=== PATIENT | male | born 1960 | race Caucasian/White ===

== ENCOUNTER 2016-10-07 17:28 | Observation (INO) ==
--- NOTE | 2016-10-07 17:44 | Emergency Department Note ---
Disposition Clinical Impression: Shortness of breath Disposition: Admitted As Inpatient Condition: Good General Adult HPI - General Chief complaint: ED Shortness of Breath/Dyspnea Stated complaint: Sent by Dr. Fountain for admission, MARY Time Seen by Provider: 10/07/16 17:38 Source: patient Limitations: no limitations - History of Present Illness Pain Scale: 0 - Related Data Home Medications Medication Instructions Recorded Confirmed Albuterol Sulfate [Ventolin Hfa] 2 puff IH Q6H PRN 10/07/16 10/07/16 Amlodipine [Norvasc] 5 mg PO DAILY 10/07/16 10/07/16 Budesonide/Formoterol 160/4.5 2 puff IH BIDR 10/07/16 10/07/16 [Symbicort 160/4.5] Esomeprazole Magnesium [Nexium] 40 mg PO DAILY 10/07/16 10/07/16 Lisinopril [Zestril] 5 mg PO DAILY 10/07/16 10/07/16 PredniSONE [Deltasone] See Taper PO TAPER 10/07/16 10/07/16 Ranitidine HCl [Zantac] 300 mg PO HS 10/07/16 10/07/16 Tiotropium [Spiriva] 18 mcg IH 0700 10/07/16 10/07/16 Previous Rx's Medication Instructions Recorded Azithromycin [Azithromycin 6-Tab 250 mg PO PER PKG DI #6 tab 08/26/15 Pack] GuaiFENesin/Codeine [ROBITUSSIN 5 ml PO Q6HR PRN #150 ml 10/09/16 w/CODEINE] Allergies Allergy/AdvReac Type Severity Reaction Status Date / Time No Known Allergies Allergy Verified 10/07/16 20:37 Past Medical History - Past Medical History Medical history: Reports: non-contributory Psychiatric history: Reports: no psych history - Social History Smoking Status: Never smoker Smokeless Tobacco Status: No Alcohol use: Reports: none Drug use: Reports: none Physical Exam - General Limitations: no limitations General appearance: alert, in no apparent distress Course Vital Signs Temperature 95.5 F L 10/07/16 17:34 Pulse Rate 84 10/07/16 17:34 Respiratory Rate 18 10/07/16 17:34 Blood Pressure 150/92 10/07/16 17:34 O2 Sat by Pulse Oximetry 97 10/07/16 17:34 Temperature 97.8 F 10/09/16 14:30 Pulse Rate 83 10/09/16 17:14 Respiratory Rate 12 10/09/16 17:14 Blood Pressure 147/84 10/09/16 17:14 O2 Sat by Pulse Oximetry 94 10/09/16 14:30 Oxygen Delivery Oxygen Delivery Room Air Medical Decision Making - Lab Data Result diagrams: 10/08/16 01:00 10/08/16 01:00 Lab Results 10/07/16 10/07/16 10/07/16 Range/Units 19:06 19:06 19:06 WBC 11.5 H (4.3-11.1) K/mcL RBC 5.35 (4.19-5.50) M/mcL Hgb 16.4 (12.9-16.9) g/dL Hct 46.4 (37.5-50.1) % MCV 86.7 (83.0-100.0) fL MCH 30.7 (28.0-33.3) pg MCHC 35.3 (31.6-35.5) g/dL RDW 12.7 (11.5-14.5) % Plt Count 206 (140-400) K/mcL MPV 9.8 (9.4-12.4) fL Immature Gran % 1.1 (0-4) % Seg Neutrophils % 88.3 % Lymphocytes % 8.4 % Monocytes % 2.1 % Eosinophils % 0.0 % Basophils % 0.1 % Neutrophils # 10.2 H (1.6-8.9) K/mcL Lymphocytes # 1.0 (0.6-4.6) K/mcL Monocytes # 0.2 (0.0-1.3) K/mcL Eosinophils # 0.0 (0.0-0.6) K/mcL Basophils # 0.0 (0.0-0.2) K/mcL PT 11.6 (9.4-12.1) Seconds INR 1.1 APTT 24.1 L (26.0-36.0) Seconds D-Dimer 235 (0-500) ng/mLFEU Sodium 140 (136-145) mEq/L Potassium 3.8 (3.5-4.5) mEq/L Chloride 108 (98-109) mEq/L Carbon Dioxide 24 (19-29) mEq/L BUN 19 (8-26) mg/dL Creatinine 0.92 (0.72-1.25) mg/dL Est GFR ( Amer) > 60 (> 60) Est GFR (Non-Af Amer) > 60 (> 60) BUN/Creatinine Ratio 21 (6-26) Glucose 196 H (70-99) mg/dL Calculated Osmolality 298 (280-300) Calcium 8.5 L (8.6-10.8) mg/dL Troponin I (0-0.03) ng/mL B-Natriuretic Peptide (0-100) pg/mL B. pertussis DNA (Negative) 10/07/16 10/07/16 10/07/16 Range/Units 19:06 19:06 20:46 WBC (4.3-11.1) K/mcL RBC (4.19-5.50) M/mcL Hgb (12.9-16.9) g/dL Hct (37.5-50.1) % MCV (83.0-100.0) fL MCH (28.0-33.3) pg MCHC (31.6-35.5) g/dL RDW (11.5-14.5) % Plt Count (140-400) K/mcL MPV (9.4-12.4) fL Immature Gran % (0-4) % Seg Neutrophils % % Lymphocytes % % Monocytes % % Eosinophils % % Basophils % % Neutrophils # (1.6-8.9) K/mcL Lymphocytes # (0.6-4.6) K/mcL Monocytes # (0.0-1.3) K/mcL Eosinophils # (0.0-0.6) K/mcL Basophils # (0.0-0.2) K/mcL PT (9.4-12.1) Seconds INR APTT (26.0-36.0) Seconds D-Dimer (0-500) ng/mLFEU Sodium (136-145) mEq/L Potassium (3.5-4.5) mEq/L Chloride (98-109) mEq/L Carbon Dioxide (19-29) mEq/L BUN (8-26) mg/dL Creatinine (0.72-1.25) mg/dL Est GFR ( Amer) (> 60) Est GFR (Non-Af Amer) (> 60) BUN/Creatinine Ratio (6-26) Glucose (70-99) mg/dL Calculated Osmolality (280-300) Calcium (8.6-10.8) mg/dL Troponin I 0.00 (0-0.03) ng/mL B-Natriuretic Peptide 53 (0-100) pg/mL B. pertussis DNA Negative (Negative) Attestation Statement - Attestation Attestation: I examined this patient and my medical decision-making was reviewed with the ELECTROTYPER/PA/Advanced Practice Nurse/Resident Physician. I agree with the documented findings, disposition and treatment plan as described except to the extent set forth below. Face to face time provided Patient seen and evaluated in conjunction with the resident physician Dr. Staley. He complains of dyspnea and nonproductive cough. Sent to the emergency department at the recommendation of his primary care provider. Appears in no acute distress on exam. EKG reviewed by me. 18:41: Care to be endorsed to the oncoming physician Dr. Doe at 7 PM pending labs, reevaluation. They will determine the patient's final disposition
[2016-10-07] MEDS ORDERED: Ipratropium/Albuterol Neb 3 ML IH ONE (18:04)
--- NOTE | 2016-10-07 18:09 | Emergency Department Note ---
Disposition Clinical Impression: Shortness of breath Disposition: Still a Patient Referrals: Simon Fountain MD [Primary Care Provider] - Forms: ED Satisfaction Letter Time of Disposition: 19:03 SOB HPI - General Chief Complaint: ED Shortness of Breath/Dyspnea Stated Complaint: Sent by Dr. Fountain for admission, MARY Time Seen by Provider: 10/07/16 17:38 Source: patient Mode of arrival: ambulatory Limitations: no limitations Nursing Notes Reviewed: Yes Vital Signs Reviewed: Yes - History of Present Illness Patient presents to the ED with the chief complaint of shortness of breath. Patient states that he became short of breath approximately one month ago. He saw his primary care physician, Dr. Fountain, who diagnosed him with bronchitis and placed him on albuterol, steroids. Patient states he felt like he got a little better, but has since then developed worsening difficulty breathing and a nonproductive cough. He reports coughing so violently that he has developed sternal chest tenderness. Denies any chest pain but states that his sternum and ribs are very sore from coughing. He has had a few episodes of posttussive emesis. He said a few episodes where he has coughed so much he is almost "blacked out". He states that he saw Dr. Fountain again 2 days ago and performed a chest x-ray. He has a voicemail on his phone from 4:[address] Fountain instructing him to come to the emergency department for admission. We have not received any communication from his office about this and has chest x-ray performed yesterday was read as normal. Patient has no known history of CHF, COPD or asthma. No history of coronary artery disease. Does have a history of hypertension. No pain or swelling in his legs. Has been having headaches from coughing so much, but no change from baseline. No changes in vision. No abdominal pain, nausea, or diarrhea. No rashes. No history of DVT or PE. No h /o malignancy - Related Data Previous Rx's Medication Instructions Recorded Azithromycin [Azithromycin 6-Tab 250 mg PO PER PKG DI #6 tab 08/26/15 Pack] Ondansetron ODT [Zofran ODT] 4 mg SL Q6HR PRN #30 tab.rapdis 09/01/15 Allergies Allergy/AdvReac Type Severity Reaction Status Date / Time No Known Allergies Allergy Verified 10/07/16 17:34 All systems ED: reviewed and negative except as stated. Constitutional: Denies: fever Cardiovascular: Reports: chest pain (sternal, tender), dyspnea on exertion. Denies: palpitations, orthopnea, edema, syncope Respiratory: Reports: cough, dyspnea, wheezes. Denies: hemoptysis, stridor, sputum production Gastrointestinal: Denies: abdominal pain, nausea, vomiting Genitourinary: Denies: dysuria Musculoskeletal: Denies: back pain, neck pain Integumentary: Denies: rash Neurological: Reports: headache Endocrine: Reports: fatigue (low testosterone) Past Medical History - Past Medical History Attestation: Yes The following information was validated with the patient. Source: patient Medical history: Reports: non-contributory Psychiatric history: Reports: no psych history - Social History Smoking Status: Never smoker Smokeless Tobacco Status: No Alcohol use: Reports: none Drug use: Reports: none Physical Exam - General Limitations: no limitations General appearance: alert, in no apparent distress - Head Head exam: atraumatic, normocephalic, normal inspection - Eye Eye exam: Present: normal appearance, PERRL, EOMI - ENT ENT exam: normal exam, normal oropharynx, mucous membranes moist - Neck Neck exam: Present: normal inspection, full ROM, trachea midline - Chest Chest inspection: Present: normal inspection, symmetric chest wall rise - Respiratory Respiratory exam: Present: wheezes (Scattered wheezing, left greater than right , no respiratory distress but is slightly dyspneic). Absent: normal lung sounds bilaterally, respiratory distress - Cardiovascular Cardiovascular exam: Present: regular rate, normal rhythm, normal heart sounds - Abdominal Exam Abdominal exam: Present: soft, Non-Tender. Absent: tenderness, distention, guarding, rebound, rigidity - Extremities Exam Extremities exam: Present: normal inspection, full ROM. Absent: tenderness, pedal edema - Expanded Lower Extremity Exam Hip/Pelvis exam: Present: normal inspection, full ROM Upper leg exam: Present: normal inspection, full ROM Knee exam: Present: normal inspection, full ROM Lower leg exam: Present: normal inspection, full ROM Ankle exam: Present: normal inspection, full ROM Foot/toe exam: Present: normal inspection, full ROM Neurovascular/Tendon exam: Absent: motor deficit, sensory deficit, tendon deficit - Neurological Exam Neurological exam: Present: alert, oriented X3 - Psychiatric Psychiatric exam: Present: normal affect, normal mood - Skin Skin exam: Present: warm, dry, intact, normal color Course Course Narrative: 56 y/o M presenting with a month of difficulty breathing. Has been treated for bronchitis and is not getting better. He is wheezing. We will check labs, give him a breathing treatment and will admit per his primary care physician's request, although we have not been contacted about this patient or notified in any way that he was being sent over for admission. Vital Signs Temperature 95.5 F L 10/07/16 17:34 Pulse Rate 84 10/07/16 17:34 Respiratory Rate 18 10/07/16 17:34 Blood Pressure 150/92 10/07/16 17:34 O2 Sat by Pulse Oximetry 97 10/07/16 17:34 Temperature 95.5 F L 10/07/16 17:34 Pulse Rate 84 10/07/16 17:34 Respiratory Rate 18 10/07/16 17:34 Blood Pressure 150/92 10/07/16 17:34 O2 Sat by Pulse Oximetry 97 10/07/16 17:34 Oxygen Delivery Oxygen Delivery Room Air S.Zaria - Julieta Situation: Demographics, MOA Background: Presenting Complaint, Relevant PMH, Meds, & Allergies Assessment: Vital Signs, Course and respsone to treatment, Exam Concerns, Patient/Family Expectation, Pertinant Lab Results, Outstanding Labs Recommendation: Barrier(s) to disposition, Recommendation based on pending studies, treatments, or consults SDelicia Report Given to: Dr. Mike Rendon Repor Time: 19:03
[2016-10-07 19:13] LABS: Basophils % 0.1 %; Hematocrit 46.4 % (37.5-50.1); Hemoglobin 16.4 g/dL (12.9-16.9); Immature Granulocytes % 1.1 % (0-4); Lymphocytes % 8.4 %; Mean Corpuscular HGB Conc 35.3 g/dL (31.6-35.5); Mean Corpuscular Hemoglobin 30.7 pg (28.0-33.3); Mean Corpuscular Volume 86.7 fL (83.0-100.0); Mean Platelet Volume 9.8 fL (9.4-12.4); Monocytes # 0.2 K/mcL (0.0-1.3); Monocytes % 2.1 %; Neutrophils # 10.2 K/mcL (1.6-8.9); Platelet Count 206 K/mcL (140-400); Red Blood Count 5.35 M/mcL (4.19-5.50); Red Cell Distribution Width 12.7 % (11.5-14.5); Segmented Neutrophils % 88.3 %
[2016-10-07 19:18] LABS: INR 1.1; Prothrombin Time 11.6 Seconds (9.4-12.1)
[2016-10-07 19:20] LABS: Activated Partial Thrombo Time 24.1 Seconds (26.0-36.0)
[2016-10-07 19:26] LABS: BUN/Creatinine Ratio 21 (6-26); Blood Urea Nitrogen 19 mg/dL (8-26); Calcium 8.5 mg/dL (8.6-10.8); Carbon Dioxide 24 mEq/L (19-29); Chloride 108 mEq/L (98-109); Glucose 196 mg/dL (70-99); Osmolality,Calculated 298 (280-300); Potassium 3.8 mEq/L (3.5-4.5); Sodium 140 mEq/L (136-145); eGFR For African Americans > 60 (> 60); eGFR For Non-African Americans > 60 (> 60)
--- NOTE | 2016-10-07 19:30 | Emergency Department Note ---
Disposition Clinical Impression: Shortness of breath Disposition: Admitted As Inpatient Condition: Good General Adult HPI - General Chief complaint: ED Shortness of Breath/Dyspnea Stated complaint: Sent by Dr. Fountain for admission, MARY Time Seen by Provider: 10/07/16 17:38 Source: patient Mode of arrival: ambulatory Limitations: no limitations Nursing Notes Reviewed: Yes Vital Signs Reviewed: Yes - History of Present Illness HPI Narrative: Male patient being seen by Dr. Crystal and Dr. Staley and being signed out us. Please see Dr. Staley documentation. Pain Scale: 0 - Related Data Home Medications Medication Instructions Recorded Confirmed Albuterol Sulfate [Ventolin Hfa] 2 puff IH Q6H PRN 10/07/16 10/07/16 Amlodipine [Norvasc] 5 mg PO DAILY 10/07/16 10/07/16 Budesonide/Formoterol 160/4.5 2 puff IH BIDR 10/07/16 10/07/16 [Symbicort 160/4.5] Esomeprazole Magnesium [Nexium] 40 mg PO DAILY 10/07/16 10/07/16 Lisinopril [Zestril] 5 mg PO DAILY 10/07/16 10/07/16 PredniSONE [Deltasone] See Taper PO TAPER 10/07/16 10/07/16 Ranitidine HCl [Zantac] 300 mg PO HS 10/07/16 10/07/16 Tiotropium [Spiriva] 18 mcg IH 0700 10/07/16 10/07/16 Previous Rx's Medication Instructions Recorded Azithromycin [Azithromycin 6-Tab 250 mg PO PER PKG DI #6 tab 08/26/15 Pack] GuaiFENesin/Codeine [ROBITUSSIN 5 ml PO Q6HR PRN #150 ml 10/09/16 w/CODEINE] Allergies Allergy/AdvReac Type Severity Reaction Status Date / Time No Known Allergies Allergy Verified 10/07/16 20:37 Constitutional: Denies: fever Cardiovascular: Reports: chest pain (sternal, tender), dyspnea on exertion. Denies: palpitations, orthopnea, edema, syncope Respiratory: Reports: cough, dyspnea, wheezes. Denies: hemoptysis, stridor, sputum production Gastrointestinal: Denies: abdominal pain, nausea, vomiting Genitourinary: Denies: dysuria Musculoskeletal: Denies: back pain, neck pain Integumentary: Denies: rash Neurological: Reports: headache Endocrine: Reports: fatigue (low testosterone) Past Medical History - Past Medical History Medical history: Reports: non-contributory Psychiatric history: Reports: no psych history - Social History Smoking Status: Never smoker Smokeless Tobacco Status: No Alcohol use: Reports: none Drug use: Reports: none Physical Exam - General Limitations: no limitations General appearance: alert, in no apparent distress Course Course Narrative: Male patient resting comfortably in bed. He states that he has had a several week history of cough with posttussive emesis and he states that he has been coughing so hard that he feels like he gets dizzy. He states that he is also having a pain in the center of his chest when he coughs. He states it feels like he pulled a muscle. He does not appear in distress on my exam however does begin to cough. It appears that he cannot catch his breath while he is coughing. He states that when he is up walking around he has no trouble breathing however whenever he sits down after ambulating for a while he begins to cough and gets very short of breath. He states he then breaks out into a cold sweat. Patient states that he has tried several things including inhalers antibiotics and steroids with no relief. Patient's chest x-ray is normal. His labs are grossly normal as well. He does have some coughing fits all he is here but his oxygen saturation stays in high 90s on no supplemental oxygen. We will ambulate him throughout the department to see if his oxygen saturation drops. We will also get bilateral blood pressures due to discrepancy in the monitor. - Reevaluation(s) Reevaluation #1: Bilateral arm blood pressures are equal. Time: 19:59 - Consultations Consultation #1: Spoke with Dr Fountain. He advises that he is requesting the patient be admitted to the hospital for failure of outpatient therapy of his cough. He states he is unaware if the patient now has COPD or asthma. He states that he has tried Levaquin azithromycin Singulair Ventolin Symbicort and Spiriva as well as prednisone with no relief of this cough and patient shortness of breath. Time: 19:56 Vital Signs Temperature 95.5 F L 10/07/16 17:34 Pulse Rate 84 10/07/16 17:34 Respiratory Rate 18 10/07/16 17:34 Blood Pressure 150/92 10/07/16 17:34 O2 Sat by Pulse Oximetry 97 10/07/16 17:34 Temperature 97.8 F 10/09/16 14:30 Pulse Rate 83 10/09/16 17:14 Respiratory Rate 12 10/09/16 17:14 Blood Pressure 147/84 10/09/16 17:14 O2 Sat by Pulse Oximetry 94 10/09/16 14:30 Oxygen Delivery Oxygen Delivery Room Air Medical Decision Making - Medical Records Medical records reviewed: Yes I reviewed the patient's medical records. - Lab Data Lab results reviewed: Yes I reviewed the patient's lab results. Result diagrams: 10/08/16 01:00 10/08/16 01:00 Lab Results 10/07/16 10/07/16 10/07/16 Range/Units 19:06 19:06 19:06 WBC 11.5 H (4.3-11.1) K/mcL RBC 5.35 (4.19-5.50) M/mcL Hgb 16.4 (12.9-16.9) g/dL Hct 46.4 (37.5-50.1) % MCV 86.7 (83.0-100.0) fL MCH 30.7 (28.0-33.3) pg MCHC 35.3 (31.6-35.5) g/dL RDW 12.7 (11.5-14.5) % Plt Count 206 (140-400) K/mcL MPV 9.8 (9.4-12.4) fL Immature Gran % 1.1 (0-4) % Seg Neutrophils % 88.3 % Lymphocytes % 8.4 % Monocytes % 2.1 % Eosinophils % 0.0 % Basophils % 0.1 % Neutrophils # 10.2 H (1.6-8.9) K/mcL Lymphocytes # 1.0 (0.6-4.6) K/mcL Monocytes # 0.2 (0.0-1.3) K/mcL Eosinophils # 0.0 (0.0-0.6) K/mcL Basophils # 0.0 (0.0-0.2) K/mcL PT 11.6 (9.4-12.1) Seconds INR 1.1 APTT 24.1 L (26.0-36.0) Seconds D-Dimer 235 (0-500) ng/mLFEU Sodium 140 (136-145) mEq/L Potassium 3.8 (3.5-4.5) mEq/L Chloride 108 (98-109) mEq/L Carbon Dioxide 24 (19-29) mEq/L BUN 19 (8-26) mg/dL Creatinine 0.92 (0.72-1.25) mg/dL Est GFR ( Amer) > 60 (> 60) Est GFR (Non-Af Amer) > 60 (> 60) BUN/Creatinine Ratio 21 (6-26) Glucose 196 H (70-99) mg/dL Calculated Osmolality 298 (280-300) Calcium 8.5 L (8.6-10.8) mg/dL Troponin I (0-0.03) ng/mL B-Natriuretic Peptide (0-100) pg/mL B. pertussis DNA (Negative) 10/07/16 10/07/16 10/07/16 Range/Units 19:06 19:06 20:46 WBC (4.3-11.1) K/mcL RBC (4.19-5.50) M/mcL Hgb (12.9-16.9) g/dL Hct (37.5-50.1) % MCV (83.0-100.0) fL MCH (28.0-33.3) pg MCHC (31.6-35.5) g/dL RDW (11.5-14.5) % Plt Count (140-400) K/mcL MPV (9.4-12.4) fL Immature Gran % (0-4) % Seg Neutrophils % % Lymphocytes % % Monocytes % % Eosinophils % % Basophils % % Neutrophils # (1.6-8.9) K/mcL Lymphocytes # (0.6-4.6) K/mcL Monocytes # (0.0-1.3) K/mcL Eosinophils # (0.0-0.6) K/mcL Basophils # (0.0-0.2) K/mcL PT (9.4-12.1) Seconds INR APTT (26.0-36.0) Seconds D-Dimer (0-500) ng/mLFEU Sodium (136-145) mEq/L Potassium (3.5-4.5) mEq/L Chloride (98-109) mEq/L Carbon Dioxide (19-29) mEq/L BUN (8-26) mg/dL Creatinine (0.72-1.25) mg/dL Est GFR ( Amer) (> 60) Est GFR (Non-Af Amer) (> 60) BUN/Creatinine Ratio (6-26) Glucose (70-99) mg/dL Calculated Osmolality (280-300) Calcium (8.6-10.8) mg/dL Troponin I 0.00 (0-0.03) ng/mL B-Natriuretic Peptide 53 (0-100) pg/mL B. pertussis DNA Negative (Negative) - Radiology Data Radiology results reviewed: Yes I reviewed the patient's radiology results. Chest X-Ray 10/07/16 18:04 IMPRESSION: Stable chest since 10/06/2016. No acute cardiopulmonary findings. D/ / Marcia Soto MD / Marcia Soto MD Interpreting Provider: Marcia Soto MD
[2016-10-07] MEDS ORDERED: Benzonatate 100 MG CAPSULE PO STA (19:31)
--- NOTE | 2016-10-07 20:10 | Emergency Department Note ---
Disposition Clinical Impression: Shortness of breath Disposition: Admitted As Inpatient Condition: Good Time of Disposition: 20:13 General Adult HPI - General Chief complaint: ED Shortness of Breath/Dyspnea Stated complaint: Sent by Dr. Fountain for admission, MARY Time Seen by Provider: 10/07/16 17:38 Source: patient Mode of arrival: ambulatory Limitations: no limitations Nursing Notes Reviewed: Yes Vital Signs Reviewed: Yes - History of Present Illness Pain Scale: 0 - Related Data Home Medications Medication Instructions Recorded Confirmed Albuterol Sulfate [Ventolin Hfa] 2 puff IH Q6H PRN 10/07/16 10/07/16 Amlodipine [Norvasc] 5 mg PO DAILY 10/07/16 10/07/16 Budesonide/Formoterol 160/4.5 2 puff IH BIDR 10/07/16 10/07/16 [Symbicort 160/4.5] Esomeprazole Magnesium [Nexium] 40 mg PO DAILY 10/07/16 10/07/16 Lisinopril [Zestril] 5 mg PO DAILY 10/07/16 10/07/16 PredniSONE [Deltasone] See Taper PO TAPER 10/07/16 10/07/16 Ranitidine HCl [Zantac] 300 mg PO HS 10/07/16 10/07/16 Tiotropium [Spiriva] 18 mcg IH 0700 10/07/16 10/07/16 Previous Rx's Medication Instructions Recorded Azithromycin [Azithromycin 6-Tab 250 mg PO PER PKG DI #6 tab 08/26/15 Pack] Allergies Allergy/AdvReac Type Severity Reaction Status Date / Time No Known Allergies Allergy Verified 10/07/16 20:37 Constitutional: Denies: fever Cardiovascular: Reports: chest pain (sternal, tender), dyspnea on exertion. Denies: palpitations, orthopnea, edema, syncope Respiratory: Reports: cough, dyspnea, wheezes. Denies: hemoptysis, stridor, sputum production Gastrointestinal: Denies: abdominal pain, nausea, vomiting Genitourinary: Denies: dysuria Musculoskeletal: Denies: back pain, neck pain Integumentary: Denies: rash Neurological: Reports: headache Endocrine: Reports: fatigue (low testosterone) Past Medical History - Past Medical History Medical history: Reports: non-contributory Psychiatric history: Reports: no psych history - Social History Smoking Status: Never smoker Smokeless Tobacco Status: No Alcohol use: Reports: none Drug use: Reports: none Physical Exam - General Limitations: no limitations General appearance: alert, in no apparent distress - Head Head exam: atraumatic, normocephalic - Eye Eye exam: Present: normal appearance, PERRL, EOMI - ENT ENT exam: normal exam, normal oropharynx - Neck Neck exam: Present: normal inspection, full ROM, trachea midline - Chest Chest inspection: Present: normal inspection, symmetric chest wall rise. Absent : tenderness - Respiratory Respiratory exam: Present: wheezes (Left lung conteh. Prior to DuoNeb. Cleared after DuoNeb. Right lung sounds are clear.) - Cardiovascular Cardiovascular exam: Present: regular rate, normal rhythm, normal heart sounds - Abdominal Exam Abdominal exam: Present: soft, Non-Tender, normal bowel sounds - Extremities Exam Extremities exam: Present: normal inspection, full ROM, normal capillary refill. Absent: tenderness, pedal edema - Back Exam Back exam: Present: normal inspection, full ROM. Absent: tenderness, CVA tenderness (R), CVA tenderness (L) - Neurological Exam Neurological exam: Present: alert, oriented X3 - Psychiatric Psychiatric exam: Present: normal affect, normal mood - Skin Skin exam: Present: warm, dry, intact, normal color Course Course Narrative: Please see Dr. Staley's note for further documentation. - Reevaluation(s) Reevaluation #1: Patient ambulated throughout the emergency department. His oxygen saturation did not drop below 96% however he became very dizzy and weak. After he sat down he had a coughing episode that he could not catch his breath. We will admit The patient for his symptomatic dyspnea. He is agreeable to this. I am concerned for more of a cardiac etiology of his dyspnea as opposed to a respiratory cause of his dyspnea. He has been on steroids Levaquin azithromycin as well as several different inhalers with no relief of the shortness of breath. He states he does not get short of breath whenever he is ambulating however after he sits down he be answered cough and gets very short of breath and dizzy. He states that he will frequently get very diaphoretic. He has been complaining of chest pain however denies it currently. He has never been a smoker. 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 Time: 20:12 - Consultations Consultation #1: Dr Mills accepted Pt in stable condition. Time: 20:24 Vital Signs Temperature 95.5 F L 10/07/16 17:34 Pulse Rate 84 10/07/16 17:34 Respiratory Rate 18 10/07/16 17:34 Blood Pressure 150/92 10/07/16 17:34 O2 Sat by Pulse Oximetry 97 10/07/16 17:34 Temperature 97.8 F 10/07/16 23:18 Pulse Rate 75 10/08/16 00:11 Respiratory Rate 18 10/07/16 23:24 Blood Pressure 154/82 10/08/16 00:11 O2 Sat by Pulse Oximetry 97 10/07/16 23:24 Oxygen Delivery Oxygen Delivery Room Air Medical Decision Making - Lab Data Result diagrams: 10/08/16 01:00 10/08/16 01:00 Lab Results 10/07/16 10/07/16 10/07/16 Range/Units 19:06 19:06 19:06 WBC 11.5 H (4.3-11.1) K/mcL RBC 5.35 (4.19-5.50) M/mcL Hgb 16.4 (12.9-16.9) g/dL Hct 46.4 (37.5-50.1) % MCV 86.7 (83.0-100.0) fL MCH 30.7 (28.0-33.3) pg MCHC 35.3 (31.6-35.5) g/dL RDW 12.7 (11.5-14.5) % Plt Count 206 (140-400) K/mcL MPV 9.8 (9.4-12.4) fL Immature Gran % 1.1 (0-4) % Seg Neutrophils % 88.3 % Lymphocytes % 8.4 % Monocytes % 2.1 % Eosinophils % 0.0 % Basophils % 0.1 % Neutrophils # 10.2 H (1.6-8.9) K/mcL Lymphocytes # 1.0 (0.6-4.6) K/mcL Monocytes # 0.2 (0.0-1.3) K/mcL Eosinophils # 0.0 (0.0-0.6) K/mcL Basophils # 0.0 (0.0-0.2) K/mcL PT 11.6 (9.4-12.1) Seconds INR 1.1 APTT 24.1 L (26.0-36.0) Seconds D-Dimer 235 (0-500) ng/mLFEU Sodium 140 (136-145) mEq/L Potassium 3.8 (3.5-4.5) mEq/L Chloride 108 (98-109) mEq/L Carbon Dioxide 24 (19-29) mEq/L BUN 19 (8-26) mg/dL Creatinine 0.92 (0.72-1.25) mg/dL Est GFR ( Amer) > 60 (> 60) Est GFR (Non-Af Amer) > 60 (> 60) BUN/Creatinine Ratio 21 (6-26) Glucose 196 H (70-99) mg/dL Calculated Osmolality 298 (280-300) Calcium 8.5 L (8.6-10.8) mg/dL Troponin I (0-0.03) ng/mL B-Natriuretic Peptide (0-100) pg/mL 10/07/16 10/07/16 Range/Units 19:06 19:06 WBC (4.3-11.1) K/mcL RBC (4.19-5.50) M/mcL Hgb (12.9-16.9) g/dL Hct (37.5-50.1) % MCV (83.0-100.0) fL MCH (28.0-33.3) pg MCHC (31.6-35.5) g/dL RDW (11.5-14.5) % Plt Count (140-400) K/mcL MPV (9.4-12.4) fL Immature Gran % (0-4) % Seg Neutrophils % % Lymphocytes % % Monocytes % % Eosinophils % % Basophils % % Neutrophils # (1.6-8.9) K/mcL Lymphocytes # (0.6-4.6) K/mcL Monocytes # (0.0-1.3) K/mcL Eosinophils # (0.0-0.6) K/mcL Basophils # (0.0-0.2) K/mcL PT (9.4-12.1) Seconds INR APTT (26.0-36.0) Seconds D-Dimer (0-500) ng/mLFEU Sodium (136-145) mEq/L Potassium (3.5-4.5) mEq/L Chloride (98-109) mEq/L Carbon Dioxide (19-29) mEq/L BUN (8-26) mg/dL Creatinine (0.72-1.25) mg/dL Est GFR ( Amer) (> 60) Est GFR (Non-Af Amer) (> 60) BUN/Creatinine Ratio (6-26) Glucose (70-99) mg/dL Calculated Osmolality (280-300) Calcium (8.6-10.8) mg/dL Troponin I 0.00 (0-0.03) ng/mL B-Natriuretic Peptide 53 (0-100) pg/mL Attestation Statement - Attestation Attestation: I, Pedro Luis Doe, examined this patient and my medical decision-making was reviewed with the MANAGER SOURCING/PA/Advanced Practice Nurse/Resident Physician. I agree with the documented findings, disposition and treatment plan as described except to the extent set forth below. 56-year-old male presents with concerns of shortness of breath increasing over the past few weeks. Patient was sent in by his primary care provider for further evaluation. Patient has taken azithromycin and prednisone as an outpatient without improvement of his cough and shortness of breath. Patient states that he becomes short of breath with standing and other various activities however he states he is able to ambulate without significant difficulty. Patient denies near syncopal symptoms. However he does feel increasingly weak and fatigued over the past few days. Initial troponin negative. Patient x-ray does not show acute infiltrate. Patient EKG did not show evidence of acute STEMI. Patient ambulated in the emergency department and became visibly short of breath. Patient will be admitted to hospital for further care and evaluation of possible ACS versus new onset asthma or COPD.
[2016-10-07] MEDS ORDERED: Acetaminophen 325 MG TABLET PO PRN (22:28)
[2016-10-07] MEDS ORDERED: Naloxone 0.4 MG/ML INJ IVP PRN (22:28)
[2016-10-07] MEDS ORDERED: Albuterol 2.5 MG/3 ML NEBULIZER IH PRN (22:37)
--- NOTE | 2016-10-07 23:08 | Internal Med History&Physical ---
Date of Encounter: 10/07/16 Time of Encounter: 23:00 Assessment and Plan (1) Shortness of breath Current visit: Yes Status: Acute Patient reporting increasing shortness of breath, cough, fatigue over the last several months. He's had several rounds of prednisone tapers and antibiotics, and he's been started on inhalers without improvement. He has had previous issues with severe sinus infections and has required surgery, but he reports his cough, and shortness of breath are not similar. He is afebrile. WBC mildly elevated at 11.5. Chest xray shows low lung volumes, but no acute cardiopulmonary disease. EKG showed NSR. Echocardiogram Pulmonary consult for possible PFTs and/or Chest CT for further evaluation. Will need to be called in the morning. Continue Prednisone taper and azithromycin Symbicort BID Duonebs QID Albuterol nebulizer Q2 PRN titrate oxygen to maintain O2 saturation > 92% Robitussin with codeine PRN for cough. (2) Chest pain Current visit: Yes Status: Acute Patient describes chest pain in his mid chest as "soreness" and worse with coughing, he attributes it to coughing. Initial troponin negative at 0.00. EKG showed normal sinus rhythm. He reports he is able to run 1.5 miles at his job without chest pain or shortness of breath, and his shortness of breath will occur when he sits down after activity. Chest pain likely related to cough, but will rule out ACS. continuous monitoring specialist serial troponins echocardiogram. Qualifiers: Chest pain type: precordial pain Qualified Code(s): R07.2 - Precordial pain (3) Lightheadedness Current visit: Yes Status: Acute Patient reports occasional lightheadedness with coughing and on standing. He got lightheaded in the ED today on standing. Echocardiogram orthostatic vital signs. (4) Hemochromatosis Current visit: Yes Status: Acute Patient reports he was diagnosed with "too much iron in his liver" a long time ago and was told he needed to donate blood on a regular basis, but hasn't. Will check ferritin level. If elevated, he may need referral to [facility] for outpatient management. Qualifiers: Hemochromatosis type: unspecified Qualified Code(s): E83.119 - Hemochromatosis, unspecified (5) DVT prophylaxis Current visit: Yes Status: Acute encourage ambulation anti-embolic stockings Lovenox 40mg SQ daily. Internal Medicine - H&P: HPI Chief complaint: shortness of breath Admitted From: Emergency Dept Plans for Post Hospital Care: Home History of present illness: Mr. Armstrong is a 56 year old male with hypertension, GERD, hemochromatosis who presented to the emergency department with increasing shortness of breath, cough , fatigue, lightheadedness over the past several months. He has been through multiple rounds of antibiotics and steroid tapers as well as started on inhalers , without improvement in symptoms. He reports sweats and chills, headaches, and chest pain as well. He describes the chest pain as "soreness" and attributes it to his coughing, as it mostly occurs with his coughing. He reports the shortness of breath is actually worse when leaning over, and sitting up rather than when he is walking or active. He gets lightheaded when standing up and when coughing. He reports morning nausea and occasional vomiting he attributes to sinus drainage. He denies abdominal pain, numbness or tingling. Evaluation in the ER included an EKG which showed normal sinus rhythm, troponin was negative at 0.00, BNP was normal at 53. WBC was mildly elevated at 11.5. CXR shows stable low lung volumes, and no acute cardiopulmonary findings. On exam, patient is alert and oriented, in no acute distress. Lungs are clear to auscultation bilaterally and heart has regular rate and rhythm. Past Med Surg Social Fam HX - Past Medical History Medical history: GERD, hypertension, kidney stones, liver disease ( hemochromatosis) Psychiatric history: no psych history - Past Surgical History Surgical History: herniorrhaphy, sinus surgery - Social History Smoking Status: Never smoker Smokeless Tobacco Status: No Alcohol use: none Drug use: none - Family History Mother Living Status: Still Living Hx Family Cancer: Yes Sister Living Status: Still Living Hx Family Cancer: Yes Internal Medicine - H&P: Meds Azithromycin [Azithromycin 6-Tab Pack] 250 mg PO PER PKG DI #6 tab 08/26/15 [Rx] Albuterol Sulfate [Ventolin Hfa] 2 puff IH Q6H PRN 10/07/16 [History] Amlodipine [Norvasc] 5 mg PO DAILY 10/07/16 [History] Budesonide/Formoterol 160/4.5 [Symbicort 160/4.5] 2 puff IH BIDR 10/07/16 [ History] Esomeprazole Magnesium [Nexium] 40 mg PO DAILY 10/07/16 [History] Lisinopril [Zestril] 5 mg PO DAILY 10/07/16 [History] PredniSONE [Deltasone] See Taper PO TAPER 10/07/16 [History] Ranitidine HCl [Zantac] 300 mg PO HS 10/07/16 [History] Tiotropium [Spiriva] 18 mcg IH 0700 10/07/16 [History] Allergies No Known Allergies Allergy (Verified 10/07/16 20:37) All Systems PM: A 10-system review of systems was performed and is negative for pertinent findings except as documented above in the HPI. - Constitutional Constitutional: chills, fatigue, night sweats, no fever(s) - EENT Eyes: no change in vision, no discharge, no pain, no photophobia Ears: no ear discharge, no ear pain, no tinnitus Nose, mouth and throat: nasal congestion, nasal discharge, post-nasal drip, sinus pressure, no dysphagia, no neck pain, no sore throat - Cardiovascular Cardiovascular ROS IM: chest pain, dyspnea, lightheadedness, no diaphoresis, no palpitations, no syncope - Respiratory Respiratory: cough, dyspnea, pain with cough, no wheezing, no excessive phlegm production - Gastrointestinal Gastrointestinal: diarrhea, nausea, no abdominal pain, no hematemesis, no hematochezia, no melena, no vomiting - Musculoskeletal Musculoskeletal ROS IM: no numbness, no tingling - Integumentary Integumentary IM: no rash, no unusual bruising - Neurological Neurological ROS: no confusion, no convulsions, no focal weakness, no numbness, no tingling, no tremor(s) - Hematologic/Lymphatic Hematologic/Lymphatic: no easy bruising - Constitutional Vitals: Temp Pulse Resp BP Pulse Ox 97.6 F 64 12 137/82 97 10/07/16 21:48 10/07/16 21:48 10/07/16 21:48 10/07/16 21:48 10/07/16 21:48 General appearance: Present: A&O X 3, pleasant, no acute distress - Head Head exam: Present: atraumatic, normocephalic - Eye Eye exam: Present: PERRL, conjuntiva pink, sclera anicteric Pupils: Present: PERRL - Neck Neck exam general surgery: Present: supple, trachea midline. Absent: lymphadenopathy - Respiratory Respiratory exam: Present: CTAB. Absent: accessory muscle use, rales, rhonchi, wheezes - Cardiovascular Cardiovascular exam: Present: RRR, +S1, +S2. Absent: diastolic murmur, gallop, rubs, systolic murmur - GI/Abdominal GI/Abdominal exam: Present: normal bowel sounds, soft, no peritoneal signs. Absent: distended, tenderness - Extremities Exam Extremities exam: Present: warm, radial pulses palpable and symetrical. Absent : calf tenderness, cyanotic, pedal edema - Neurological Exam Neurological exam: Present: CN II-XII intact, oriented X3, no focal deficits. Absent: facial droop, speech deficit - Skin Skin exam: Present: dry, intact Internal Med - H&P Results - Labs CBC & Chem 7: 10/07/16 19:06 10/07/16 19:06 Labs: All Lab Results (24 Hours) 10/07/16 10/07/16 10/07/16 Range/Units 19:06 19:06 19:06 WBC 11.5 H (4.3-11.1) K/mcL RBC 5.35 (4.19-5.50) M/mcL Hgb 16.4 (12.9-16.9) g/dL Hct 46.4 (37.5-50.1) % MCV 86.7 (83.0-100.0) fL MCH 30.7 (28.0-33.3) pg MCHC 35.3 (31.6-35.5) g/dL RDW 12.7 (11.5-14.5) % Plt Count 206 (140-400) K/mcL MPV 9.8 (9.4-12.4) fL Immature Gran % 1.1 (0-4) % Seg Neutrophils % 88.3 % Lymphocytes % 8.4 % Monocytes % 2.1 % Eosinophils % 0.0 % Basophils % 0.1 % Neutrophils # 10.2 H (1.6-8.9) K/mcL Lymphocytes # 1.0 (0.6-4.6) K/mcL Monocytes # 0.2 (0.0-1.3) K/mcL Eosinophils # 0.0 (0.0-0.6) K/mcL Basophils # 0.0 (0.0-0.2) K/mcL PT 11.6 (9.4-12.1) Seconds INR 1.1 APTT 24.1 L (26.0-36.0) Seconds D-Dimer 235 (0-500) ng/mLFEU Sodium 140 (136-145) mEq/L Potassium 3.8 (3.5-4.5) mEq/L Chloride 108 (98-109) mEq/L Carbon Dioxide 24 (19-29) mEq/L BUN 19 (8-26) mg/dL Creatinine 0.92 (0.72-1.25) mg/dL Est GFR ( Amer) > 60 (> 60) Est GFR (Non-Af Amer) > 60 (> 60) BUN/Creatinine Ratio 21 (6-26) Glucose 196 H (70-99) mg/dL Calculated Osmolality 298 (280-300) Calcium 8.5 L (8.6-10.8) mg/dL Troponin I (0-0.03) ng/mL B-Natriuretic Peptide (0-100) pg/mL 10/07/16 10/07/16 Range/Units 19:06 19:06 WBC (4.3-11.1) K/mcL RBC (4.19-5.50) M/mcL Hgb (12.9-16.9) g/dL Hct (37.5-50.1) % MCV (83.0-100.0) fL MCH (28.0-33.3) pg MCHC (31.6-35.5) g/dL RDW (11.5-14.5) % Plt Count (140-400) K/mcL MPV (9.4-12.4) fL Immature Gran % (0-4) % Seg Neutrophils % % Lymphocytes % % Monocytes % % Eosinophils % % Basophils % % Neutrophils # (1.6-8.9) K/mcL Lymphocytes # (0.6-4.6) K/mcL Monocytes # (0.0-1.3) K/mcL Eosinophils # (0.0-0.6) K/mcL Basophils # (0.0-0.2) K/mcL PT (9.4-12.1) Seconds INR APTT (26.0-36.0) Seconds D-Dimer (0-500) ng/mLFEU Sodium (136-145) mEq/L Potassium (3.5-4.5) mEq/L Chloride (98-109) mEq/L Carbon Dioxide (19-29) mEq/L BUN (8-26) mg/dL Creatinine (0.72-1.25) mg/dL Est GFR ( Amer) (> 60) Est GFR (Non-Af Amer) (> 60) BUN/Creatinine Ratio (6-26) Glucose (70-99) mg/dL Calculated Osmolality (280-300) Calcium (8.6-10.8) mg/dL Troponin I 0.00 (0-0.03) ng/mL B-Natriuretic Peptide 53 (0-100) pg/mL - Diagnostic Studies Chest x-ray Additional comments: Chest X-Ray 10/07/16 18:04 IMPRESSION: Stable chest since 10/06/2016. No acute cardiopulmonary findings. D/ / Marcia Soto MD / Marcia Soto MD Interpreting Provider: Marcia Soto MD
[2016-10-07] MEDS: Budesonide/Formoterol 160/4.5 MDI IH SCH (23:23)
[2016-10-07] MEDS: Ipratropium/Albuterol Neb 3 ML IH SCH ×2 (23:24→23:28)
[2016-10-07] MEDS: Famotidine 20 MG TABLET PO SCH (23:54)
[2016-10-07] MEDS: GuaiFENesin/Codeine Oral Soln 5 ML UDC PO PRN (23:54)
[2016-10-08 01:06] LABS: Basophils % 0.2 %; Hematocrit 43.5 % (37.5-50.1); Hemoglobin 15.3 g/dL (12.9-16.9); Immature Granulocytes % 1.3 % (0-4); Lymphocytes # 1.2 K/mcL (0.6-4.6); Lymphocytes % 9.9 %; Mean Corpuscular HGB Conc 35.2 g/dL (31.6-35.5); Mean Corpuscular Hemoglobin 30.7 pg (28.0-33.3); Mean Corpuscular Volume 87.2 fL (83.0-100.0); Monocytes # 0.5 K/mcL (0.0-1.3); Monocytes % 4.4 %; Platelet Count 193 K/mcL (140-400); Red Blood Count 4.99 M/mcL (4.19-5.50); Red Cell Distribution Width 12.8 % (11.5-14.5); Segmented Neutrophils % 84.2 %
[2016-10-08 01:17] LABS: BUN/Creatinine Ratio 19 (6-26); Blood Urea Nitrogen 21 mg/dL (8-26); Calcium 8.7 mg/dL (8.6-10.8); Carbon Dioxide 24 mEq/L (19-29); Chloride 104 mEq/L (98-109); Glucose 242 mg/dL (70-99); Osmolality,Calculated 301 (280-300); Potassium 3.7 mEq/L (3.5-4.5); Sodium 140 mEq/L (136-145); eGFR For African Americans > 60 (> 60); eGFR For Non-African Americans > 60 (> 60)
[2016-10-08] MEDS: Ipratropium/Albuterol Neb 3 ML IH SCH ×4 (04:10→21:34)
[2016-10-08 04:24] LABS: Hemoglobin A1C 5.8 %
[2016-10-08] MEDS: *HR* Enoxaparin 40 MG/0.4 ML SYRINGE SQ SCH (06:18)
[2016-10-08 07:42] LABS: Alanine Aminotransferase 67 Units/L (0-55); Albumin 3.5 g/dL (3.5-5.0); Albumin/Globulin Ratio 1.3 (1.1-2.2); Alkaline Phosphatase 96 Units/L (38-126); Aspartate Amino Transferase 24 Units/L (5-34); Bilirubin,Direct 0.2 mg/dL (0.0-0.5); Bilirubin,Indirect 0.4 mg/dL (0.0-1.2); Bilirubin,Total 0.6 mg/dL (0.2-1.2); Globulin 2.8 g/dL (2.4-3.5); Total Protein 6.3 g/dL (6.0-8.3)
[2016-10-08] MEDS: amLODIPine 5 MG TABLET PO SCH (08:49)
[2016-10-08] MEDS: predniSONE 20 MG TABLET PO SCH (08:50)
--- NOTE | 2016-10-08 10:35 | Electrocardiograph Report ---
[address] [address] Test Date: 2016-10-07 Pat Name: Kendell Armstrong Department: 105 Room: 3B16 Gender: M Seating And Mobility Technologist: NANCY : 1960 Requested By: Lexa Staley Order Number: [id number] Reading MD: Pedro Luis Ruiz Measurements Intervals [place] Rate: 73 P: 33 PA: 157 QRS: 12 QRSD: 88 T: 37 QT: 369 QTc: 394 Interpretive Statements SINUS RHYTHM Electronically Signed On 10-08-2016 10:33:48 EDT by Pedro Luis Ruiz
[2016-10-08] MEDS: Budesonide/Formoterol 160/4.5 MDI IH SCH ×2 (10:38→21:34)
[2016-10-08] MEDS: Tiotropium 18 MCG inhalation IH SCH (10:38)
[2016-10-08 10:56] LABS: % Iron Saturation 30 % (20-55); Iron 76 mcg/dL (65-175); Transferrin 179 mg/dL (174-364)
--- NOTE | 2016-10-08 13:49 | ECHO - Doppler Report ---
Echocardiogram Name: Kendell Armstrong Date of Study: 10/08/2016 Date: 1960 Ht: 73.0 in Medical Record#: [id number] Age: 56 Wt: 250.0 lb Gender: Male BSA: 2.37 Order #: [id number] Location: [facility] Room #: 3B16 Reading Physician: Lane Kaminski MD, [facility] Chiropractor Assistant: Tiffany Lee RDCS, RVT Ordering Physician: Barbara Ogden CNP Primary Physician: Simon Fountain MD Indications: Shortness of breath, Chest pain Impressions: Normal LV systolic function, LVEF 60-65%. Normal left ventricular diastolic function. Normal right ventricular size and function. No significant valvular dysfunction. No evidence of pulmonary hypertension. Left Ventricular Wall Motion: Rest Echo Findings All wall segments showed normal motion. Findings: Study Quality * Technically adequate exam. ECG Findings * Normal sinus rhythm. Left Ventricle * Normal LV systolic function, LVEF 60-65%. * Normal LV chamber size and wall thickness. * Normal left ventricular diastolic function. Right Ventricle * Normal right ventricular size and function. Left Atrium * Normal left atrial size. Right Atrium * Normal right atrial size. Aorta * Normally sized aortic root. Pericardium * There is no pericardial effusion present. IVC * The IVC is not well evaluated. Aortic Valve * Aortic valve not well visualized. * No aortic stenosis. * No aortic regurgitation. Mitral Valve * Mildly calcified mitral valve leaflets. * No mitral stenosis. * Trace mitral regurgitation. Tricuspid Valve * Tricuspid valve not well visualized. * No tricuspid stenosis. * Trace tricuspid regurgitation. * No evidence of pulmonary hypertension. Pulmonic Valve * Pulmonic valve not well visualized. * No pulmonic stenosis. * No pulmonic regurgitation. History Hypertension Measurements: BP: 134/ 78 2D Normal Values RVIDd: 2.95 cm IVSd: .90 cm 0.6 - 1.0 cm LVIDd: 5.20 cm 3.7 - 5.6 cm LVPWd: .80 cm 0.6 - 1.1 cm LVIDs: 3.40 cm 1.5 - 3.6 cm AO: 3.30 cm < 4.0 cm LA volume: 54 Mitral Valve Peak E:.96 m/sec Peak A:.49 m/sec E/A Ratio:2 Peak E' Lat Gaetano:12.1 cm/s Peak E' Med Gaetano:7.12 cm/s E/E' Lat Ratio:7.9 E/E' Med Ratio:13.5 Tricuspid Valve TV Regurg Peak Grad: 27.00mmHg TV Regurg Peak Gaetano: 2.59m/sec Updated by Lane Kaminski MD, [facility] on 10/08/2016 1:42:02 PM electronically signed on 10/08/2016 1:42:33 PM with status of Final Wall Motion [place]: 1=Normal, 2=Hypokinesis, 3=Akinesis, 4=Dyskinesis, 5=Aneurysmal, 6=Hyperkinetic, X=Not Visualized (Blank)=Missing
[2016-10-08] MEDS: GuaiFENesin/Codeine Oral Soln 5 ML UDC PO PRN (14:53)
[2016-10-08] MEDS: Azithromycin 250 MG TABLET PO SCH (15:02)
--- NOTE | 2016-10-08 16:58 | Oncology Inp Consult Note ---
Date of Encounter: 10/08/16 Time of Encounter: 18:59 Assessment and Plan (1) Hemochromatosis Status: Chronic Assessment and plan: As per patient. Will obtain HFE gene mutation analysis to assess for the C282Y or H63D genotype for confirmation. His ferritin is elevated, but his percentage saturation is 30% which is below the cut of 45% to establish the diagnosis. His symptoms are consistent with hemochromatosis i.e decreased libido, lethargy. We will obtain CT of the abdomen and pelvis and alpha-fetoprotein to assess for liver cirrhosis/hepatocellular carcinoma screening respectively. If diagnsis is confirmed, he will have to have weekly phlebotomy with a ferritin goal of 50-100. Qualifiers: Hemochromatosis type: unspecified Qualified Code(s): E83.119 - Hemochromatosis, unspecified (2) Shortness of breath Status: Acute Assessment and plan: Of unclear etiology. Will obtain a CT scan of the chest for further evaluation. - Data of Consult Consult date: 10/08/16 Requesting Physician: Awilda Tucker Primary Care Provider: Simon Fountain MD - Consult Narrative Reason for consult: Hemochromatosis History of present illness: Mr. Johnson is a 56-year-old gentleman with a history of hemochromatosis, hypertension, GERD who presented to the emergency room on 10/07/16 on account of shortness of breath, cough and fatigue. This has been ongoing for the last couple of months and has been treated by his PCP with antibiotics and steroids without improvement in his symptoms. He was also experiencing lightheadedness especially when he stands up and with coughing, chest pain, lethargy and decreased libido. In the ER an EKG showed normal sinus rhythm and troponin was negative. Chest xray obtained on 10/07/2016 revealed no acute findings. Echocardiogram obtained on 10/08/16 revealed normal LV systolic function with an ejection fraction of 60-65% with all wall segments showing normal motion. Lab workup included iron of 76 with a percentage saturation of 30%, transferrin of 179 and ferritin of 703. Hemoglobin is 15.3. Liver function test is normal apart from an ALT of 67. He reports having hemochromatosis and was told when he was in his 20s that his iron was too high, and that he would need to give frequent blood donations, but he never followed up. Past Med Surg Social Fam HX - Past Medical History Medical history: non-contributory Psychiatric history: no psych history - Past Surgical History Surgical History: herniorrhaphy, sinus surgery - Social History Smoking Status: Never smoker Smokeless Tobacco Status: No Alcohol use: none Drug use: none - Family History Mother Living Status: Still Living Hx Family Cardiac Disorders: Yes Hx Family Cancer: Yes Sister Living Status: Still Living Hx Family Cancer: Yes Medications and Allergies Azithromycin [Azithromycin 6-Tab Pack] 250 mg PO PER PKG DI #6 tab 08/26/15 [Rx] Albuterol Sulfate [Ventolin Hfa] 2 puff IH Q6H PRN 10/07/16 [History] Amlodipine [Norvasc] 5 mg PO DAILY 10/07/16 [History] Budesonide/Formoterol 160/4.5 [Symbicort 160/4.5] 2 puff IH BIDR 10/07/16 [ History] Esomeprazole Magnesium [Nexium] 40 mg PO DAILY 10/07/16 [History] Lisinopril [Zestril] 5 mg PO DAILY 10/07/16 [History] PredniSONE [Deltasone] See Taper PO TAPER 10/07/16 [History] Ranitidine HCl [Zantac] 300 mg PO HS 10/07/16 [History] Tiotropium [Spiriva] 18 mcg IH 0700 10/07/16 [History] Allergies No Known Allergies Allergy (Verified 10/07/16 20:37) All systems: reviewed and no additional remarkable complaints except as stated Oncology - Exam - Constitutional Vitals: Temp Pulse Resp BP Pulse Ox 98.0 F 84 17 148/74 94 10/08/16 15:08 10/08/16 15:08 10/08/16 15:08 10/08/16 15:08 10/08/16 15:08 General appearance: average body habitus, cooperative, no febrile, no disheveled , no mild distress, no no acute distress - Head Head exam: Present: normal inspection, normocephalic - Eye Eye exam: Present: EOMI, normal appearance - ENT ENT exam: Present: mucous membranes moist, normal exam - Neck Neck exam: Present: full ROM, normal inspection. Absent: lymphadenopathy, meningismus, tenderness - Respiratory Respiratory exam: Present: CTAB. Absent: rales, respiratory distress, rhonchi - Cardiovascular Cardiovascular exam: Present: RRR, +S1, +S2 - GI/Abdominal GI/Abdominal exam: Present: soft. Absent: mass, organomegaly, rebound, rigid, tenderness - Extremities Exam Extremities exam: Present: normal inspection. Absent: joint swelling, pedal edema - Neurological Exam Neurological exam: Present: alert, oriented X3 Oncology - Results - Labs Labs: Short CBC 10/08/16 Range/Units 01:00 WBC 11.9 H (4.3-11.1) K/mcL Hgb 15.3 (12.9-16.9) g/dL Hct 43.5 (37.5-50.1) % Plt Count 193 (140-400) K/mcL Neutrophils # 10.0 H (1.6-8.9) K/mcL BMP 10/08/16 01:00 Sodium 140 Potassium 3.7 Chloride 104 Carbon Dioxide 24 BUN 21 Creatinine 1.11 Glucose 242 H Calcium 8.7 Cardiac Enzymes 10/08/16 Range/Units 01:00 Troponin I 0.00 (0-0.03) ng/mL Liver Function 10/08/16 Range/Units 01:00 Total Bilirubin 0.6 (0.2-1.2) mg/dL Direct Bilirubin 0.2 (0.0-0.5) mg/dL AST 24 (5-34) Units/L ALT 67 H (0-55) Units/L Alkaline Phosphatase 96 (38-126) Units/L Albumin 3.5 (3.5-5.0) g/dL Consult Discharge Plan - Plan Referrals: Simon Fountain MD [Primary Care Provider] - 10/16/16 10:00 am
[2016-10-08 17:00] LABS: Bilirubin,Urine Negative (Negative); Blood,Urine Negative (Negative); Clarity,Urine Clear (Clear); Color,Urine Yellow (Yellow); Glucose,Urine (UA) >=1000 mg/dL (Normal); Ketones,Urine Negative (Negative); Leukocyte Esterase,Urine Negative (Negative); Nitrite,Urine Negative (Negative); Protein,Urine Negative (Neg-Trace); Specific Gravity,Urine > 1.030 (1.010-1.025); Urobilinogen,Urine Normal (Normal)
[2016-10-08 17:05] LABS: Amphetamine Screen,Urine Negative ng/mL (Cutoff=1000); Barbiturate Screen,Urine Negative ng/mL (Cutoff=200); Benzodiazepines Screen,Urine Negative ng/mL (Cutoff=200); Cannabinoid Screen,Urine Negative ng/mL (Cutoff = 50); Cocaine Screen,Urine Negative ng/mL (Cutoff= 300); Opiate Screen,Urine Positive ng/mL (Cutoff=300); Phencyclidine Screen,Urine Negative ng/mL (Cutoff=25)
--- NOTE | 2016-10-08 18:43 | Internal Med Progress Note ---
Date of Encounter: 10/08/16 Time of Encounter: 15:30 - Assessment and plan (1) Shortness of breath Current Visit: Yes Status: Acute Assessment and plan: Patient has been having shortness of breath progressively over the past several months. Has been seen by his primary care provider several times and has had bouts of steroids and antibiotics without relief. Chest x-ray negative. Pertussis swab negative. Echocardiogram unremarkable with ejection fraction of 60-65%. Patient euvolemic on examination. Unclear causation at this time. Patient is a nonsmoker. He is set to see pulmonology at the end of this month outpatient for the first time. We will consider pulmonary consult tomorrow if indicated. Orthostatic vital signs unremarkable. ITS Impressions Chest X-Ray 10/07/16 18:04 IMPRESSION: Stable chest since 10/06/2016. No acute cardiopulmonary findings. D/ / Marcia Soto MD / Marcia Soto MD Interpreting Provider: Marcia Soto MD Echocardiogram impressions: Normal LV systolic function, LVEF 60-65%. Normal left ventricular diastolic function. Normal right ventricular structure and function. No significant valvular dysfunction. No evidence of pulmonary hypertension. (2) Fatigue Current Visit: Yes Status: Acute Assessment and plan: Acute on chronic, see prior note. Tox screen positive for opiates however patient received codeine cough medicine during this admission. (3) Lightheadedness Current Visit: Yes Status: Resolved (4) Chest pain Current Visit: Yes Status: Resolved Assessment and plan: Patient currently denies chest pain. He continues to endorse shortness of breath and cough as well as fatigue. See prior note for shortness of breath. Do not suspect cardiac etiology at this time. Qualifiers: Chest pain type: precordial pain Qualified Code(s): R07.2 - Precordial pain (5) Hepatitis Current Visit: Yes Status: Chronic Assessment and plan: Patient stating he was told that he has hepatitis as a result from well water that he drank as a child. Would be consistent with hepatitis A, will obtain hepatic panel. Patient has not followed up since he was a child regarding this matter. (6) Leucocytosis Current Visit: Yes Status: Acute Assessment and plan: Mild, stable, suspect stress-related, no sources of infection identified at this time. (7) Hyperglycemia Current Visit: Yes Status: Acute Assessment and plan: A1c 5.8. Likely stress related and secondary to steroid use. No diagnosis of diabetes at this time. (8) Hemochromatosis Current Visit: Yes Status: Chronic Assessment and plan: Patient stating he was diagnosed with hemochromatosis 20 years ago and has not followed up since. He states that he was at a hospital in [place] and had a liver biopsy and was told that part of his liver had been damaged. Hematology on board. Elevated ferritin noted, rest of iron panel unremarkable. LFTs unremarkable. No signs of diabetes, heart failure, cirrhosis. Qualifiers: Hemochromatosis type: unspecified Qualified Code(s): E83.119 - Hemochromatosis, unspecified (9) DVT prophylaxis Current Visit: Yes Status: Acute Assessment and plan: Subcutaneous Lovenox - Subjective Interval history: Patient seen and examined. On examination, patient stating that he started to feel sweaty, had a bout of green watery diarrhea, and then started to have a headache. He now states that his stomach is upset and rolling. He also endorses sinus pressure and continued feelings of weakness and fatigue. - Constitutional Vitals: Temp Pulse Resp BP Pulse Ox 98.0 F 84 17 148/74 94 10/08/16 15:08 10/08/16 15:08 10/08/16 15:08 10/08/16 15:08 10/08/16 15:08 General appearance: Present: A&O X 3, pleasant, no acute distress, answers questions appropriately - Head Head exam: Present: atraumatic, normocephalic - Eye Eye exam: Present: PERRL, conjuntiva pink, sclera anicteric Pupils: Present: PERRL - Neck Neck exam general surgery: Present: supple, trachea midline. Absent: lymphadenopathy - Respiratory Respiratory exam: Present: decreased breath sounds, wheezes. Absent: accessory muscle use, rales, respiratory distress, rhonchi - Cardiovascular Cardiovascular exam: Present: RRR, +S1, +S2. Absent: diastolic murmur, gallop, rubs, systolic murmur - GI/Abdominal GI/Abdominal exam: Present: distended, normal bowel sounds, soft, no peritoneal signs. Absent: tenderness - Extremities Exam Extremities exam: Present: warm, radial pulses palpable and symetrical. Absent : calf tenderness, cyanotic, pedal edema - Neurological Exam Neurological exam: Present: alert, CN II-XII intact, normal gait, oriented X3, no focal deficits, strengths equal and symetr throughout. Absent: pronater drift, facial droop, speech deficit - Skin Skin exam: Present: dry, intact, pallor, warm Internal Medicine: Result - Labs CBC & Chem 7: 10/08/16 01:00 10/08/16 01:00 Labs: Short CBC 10/08/16 Range/Units 01:00 WBC 11.9 H (4.3-11.1) K/mcL Hgb 15.3 (12.9-16.9) g/dL Hct 43.5 (37.5-50.1) % Plt Count 193 (140-400) K/mcL Neutrophils # 10.0 H (1.6-8.9) K/mcL BMP 10/08/16 01:00 Sodium 140 Potassium 3.7 Chloride 104 Carbon Dioxide 24 BUN 21 Creatinine 1.11 Glucose 242 H Calcium 8.7 Cardiac Enzymes 10/08/16 Range/Units 01:00 Troponin I 0.00 (0-0.03) ng/mL Liver Function 10/08/16 Range/Units 01:00 Total Bilirubin 0.6 (0.2-1.2) mg/dL Direct Bilirubin 0.2 (0.0-0.5) mg/dL AST 24 (5-34) Units/L ALT 67 H (0-55) Units/L Alkaline Phosphatase 96 (38-126) Units/L Albumin 3.5 (3.5-5.0) g/dL Urine 10/08/16 Range/Units 16:45 Urine Color Yellow (Yellow) Urine Clarity Clear (Clear) Urine pH 6.0 (5.0-8.0) pH Units Ur Specific [place] > 1.030 H (1.010-1.025) Urine Protein Negative (Neg-Trace) mg/dL Urine Glucose (UA) >=1000 H (Normal) mg/dL - ABG Interpretation ABG results: PT/INR, D-dimer PT 11.6 Seconds (9.4-12.1) 10/07/16 19:06 D-Dimer 235 ng/mLFEU (0-500) 10/07/16 19:06 Consult Discharge Plan - Plan Referrals: Simon Fountain MD [Primary Care Provider] - 10/16/16 10:00 am
[2016-10-08] MEDS: Famotidine 20 MG TABLET PO SCH (21:37)
[2016-10-09] MEDS: Ipratropium/Albuterol Neb 3 ML IH SCH ×3 (04:26→15:55)
[2016-10-09] MEDS: *HR* Enoxaparin 40 MG/0.4 ML SYRINGE SQ SCH (05:38)
[2016-10-09] MEDS: predniSONE 20 MG TABLET PO SCH (07:49)
[2016-10-09] MEDS: Azithromycin 250 MG TABLET PO SCH (07:49)
[2016-10-09] MEDS: amLODIPine 5 MG TABLET PO SCH (07:49)
[2016-10-09 10:35] LABS: Hepatitis B Core IgM Nonreactive (Nonreactive); Hepatitis B Surface Antigen Nonreactive (Nonreactive); Hepatitis C Virus Antibody Nonreactive (Nonreactive)
[2016-10-09] MEDS: Tiotropium 18 MCG inhalation IH SCH (10:55)
[2016-10-09] MEDS: Budesonide/Formoterol 160/4.5 MDI IH SCH (10:55)
[2016-10-09 11:06] LABS: Hepatitis A Antibody IgM Nonreactive (Nonreactive)
[2016-10-09] MEDS: GuaiFENesin/Codeine Oral Soln 5 ML UDC PO PRN (14:19)
--- NOTE | 2016-10-09 16:57 | Discharge Summary ---
Date of Encounter: 10/09/16 Time of Encounter: 09:30 - Discharge Diagnosis (1) Hemochromatosis Priority: Secondary Status: Chronic Comments: Hematology was brought on board during this admission. Patient stating he was diagnosed with hemochromatosis 20 years ago and has not followed up since. He states that he was at a hospital in [place] and had a liver biopsy and was told that part of his liver had been damaged. Elevated ferritin noted, rest of iron panel unremarkable. LFTs unremarkable. No signs of diabetes, heart failure, cirrhosis. CT scans of his abdomen, pelvis, and chest were obtained which were all unremarkable. Per hematology recommendations, patient had therapeutic phlebotomy on day of discharge of 500 mL of blood removed with 500 mL of normal saline infused. He is to have these weekly until he reaches target ferritin levels of 50-100. He will follow up closely with hematology next week. Qualifiers: Hemochromatosis type: unspecified Qualified Code(s): E83.119 - Hemochromatosis, unspecified (2) Shortness of breath Priority: Primary Status: Acute Comments: Patient has been having shortness of breath progressively over the past several months. Has been seen by his primary care provider several times and has had bouts of steroids and antibiotics without relief. Chest x-ray negative. Pertussis swab negative. Echocardiogram unremarkable with ejection fraction of 60-65%. Patient euvolemic on examination. Unclear causation at this time. Patient is a nonsmoker. He is set to see pulmonology at the end of this month outpatient for the first time. Chest CT obtained which was unremarkable, no indication for an inpatient pulmonology consult, recommend follow-up outpatient. He is tolerating room air and his aeration is slightly improved today. Recommend keeping appointment with accountant controller Dr. Gibbs on . Orthostatic vital signs unremarkable. ITS Impressions Chest X-Ray 10/07/16 18:04 IMPRESSION: Stable chest since 10/06/2016. No acute cardiopulmonary findings. D/ / Marcia Soto MD / Marcia Soto MD Interpreting Provider: Marcia Soto MD Chest CT 10/08/16 22:00 IMPRESSION: 1. No acute findings within the chest. 2. Stable fatty liver. Otherwise no focal liver lesion. 3. No acute findings within the abdomen or pelvis. 4. Small sliding-type hiatal hernia. D/ / Alec Robbins MD / Alec Robbins MD Interpreting Provider: Alec Robbins MD Echocardiogram impressions: Normal LV systolic function, LVEF 60-65%. Normal left ventricular diastolic function. Normal right ventricular structure and function. No significant valvular dysfunction. No evidence of pulmonary hypertension. (3) Fatigue Priority: Primary Status: Acute Comments: Acute on chronic, see prior note. Tox screen positive for opiates however patient received codeine cough medicine during this admission. Qualifiers: Fatigue type: unspecified Qualified Code(s): R53.83 - Other fatigue (4) Lightheadedness Priority: Primary Status: Resolved (5) Chest pain Priority: Primary Status: Resolved Qualifiers: Chest pain type: precordial pain Qualified Code(s): R07.2 - Precordial pain (6) Hepatitis Priority: Secondary Status: Inactive Comments: Patient stating he got hepatitis as a child as a result of well water which would be consistent with hepatitis A. Hepatic panel obtained during this visit and nonreactive. (7) Leucocytosis Priority: Primary Status: Acute Comments: Mild, stable, suspect stress-related, no sources of infection identified at this time. Qualifiers: Leukocytosis type: unspecified Qualified Code(s): D72.829 - Elevated white blood cell count, unspecified (8) Hyperglycemia Priority: Primary Status: Acute Comments: A1c 5.8. Likely stress related and secondary to steroid use. No diagnosis of diabetes at this time. (9) DVT prophylaxis Priority: Primary Status: Acute Comments: Subcutaneous Lovenox while admitted - Discharge Medications Prescriptions: GuaiFENesin/Codeine [ROBITUSSIN w/CODEINE] 5 ml PO Q6HR PRN #150 ml PRN Reason: Cough Home Medications: Azithromycin [Azithromycin 6-Tab Pack] 250 mg PO PER PKG DI #6 tab 08/26/15 [Rx] Albuterol Sulfate [Ventolin Hfa] 2 puff IH Q6H PRN 10/07/16 [History] Amlodipine [Norvasc] 5 mg PO DAILY 10/07/16 [History] Budesonide/Formoterol 160/4.5 [Symbicort 160/4.5] 2 puff IH BIDR 10/07/16 [ History] Esomeprazole Magnesium [Nexium] 40 mg PO DAILY 10/07/16 [History] Lisinopril [Zestril] 5 mg PO DAILY 10/07/16 [History] PredniSONE [Deltasone] See Taper PO TAPER 10/07/16 [History] Ranitidine HCl [Zantac] 300 mg PO HS 10/07/16 [History] Tiotropium [Spiriva] 18 mcg IH 0700 10/07/16 [History] GuaiFENesin/Codeine [ROBITUSSIN w/CODEINE] 5 ml PO Q6HR PRN #150 ml 10/09/16 [Rx ] Allergies/Adverse Reactions: Allergies No Known Allergies Allergy (Verified 10/07/16 20:37) Procedures/tests Complete & Pending: Procedures Performed prior 72 hours Category Date Time Status CT abdomen pelvis wo/w con [CT] Routine Cat Scan 10/08/16 22:[address] chest with contrast [CT chest w con] [CT] Routine Cat Scan 10/08/16 22:00 Completed EV echocardiogram Routine Y 10/07/16 22:35 Completed Date of admission: 10/07/16 20:54 Primary care physician: Simon Fountain MD Consults: 10/08/16 14:52 Consult to Oncology Hematology [CONS] Routine Consulting Provider: Faiza Nicholson I Reason for Consult: hx of hemochromatosis- never seen heme-onc. hx fatigue, sob, weakness x months. cardiac and pulmonic issues addressed without relief. ferritin 703. please eval and advise. thanks Time Notified: 14:54 Call Completed: Yes Discharging clinician: Awilda Gonsales Anticipated date of discharge: 10/09/16 (after therapeutic phlebotomy) - Patient Status Disposition: Home, Self-Care Condition: Good Functional capacity at discharge: independent ambulation Overall status at discharge: patient is back to baseline - Discharge Instructions Follow Up With: Simon Fountain MD [Primary Care Provider] - 10/16/16 10:00 am Faiza Nicholson MD [Partnered Physician] - Oncology [facility] [Provider Group] Additional Instructions: Follow-up with primary care provider as scheduled, follow-up with hematology next week. - Diet and Activity Activity: increase activity as tolerated, return to work once cleared by your PCP/specialist (may return next weds) Diet: low fat, low cholesterol, low salt diet Hospital course: Mr. Armstrong is a 56 year old male with past medical history of hypertension, GERD, hemochromatosis. Patient presented to the emergency department chief complaint increasing shortness of breath, cough, fatigue, lightheadedness that has been worsening over the past several months. He has been seen by his primary care provider several times and has had multiple rounds of antibiotics and steroid tapers as well as started on inhalers without improvement in his symptoms. Patient also endorses sweats and chills, headaches and intermittent chest pain as well. He described the chest pain as soreness and attributed it to his coughing. Patient also endorsed shortness of breath that is worse when he leans forward or sits up rather than when he is walking or active. Patient stating he also gets lightheaded when he stands up and when he coughs. Furthermore, he had nausea and occasional vomiting that he attributed to sinus drainage. He has had 5 sinus surgeries to this point. Is a non-/never smoker. Workup in the emergency department unremarkable except for very mild leukocytosis. Chest x-ray unremarkable. Patient was admitted to the hospitalist service for further evaluation and management. From a pulmonic standpoint, patient was treated with low-dose by mouth steroids and he remained on room air throughout this two night admission. His fatigue and lightheadedness improved as did his chest pain. Echocardiogram unremarkable with ejection fraction of 60-65%. Patient was euvolemic on examination throughout this admission. Chest CT obtained which was unremarkable. There is no indication for inpatient pulmonology consult and he is set to see [facility] pulmon[facility] team on 10/26/16. Regarding his hemochromatosis, iron panel revealed elevated ferritin levels. His LFTs were unremarkable. Abdominal pelvic CT unremarkable. Patient was hyperglycemic but diabetes was ruled out with an A1c of 5.8-likely hyperglycemic secondary to stress and steroid usage. Patient also stating he was told he had hepatitis as a child as a result from well water which would be consistent with hepatitis A. Hepatic panel was negative. Cardiac etiology of the patient's chest pain was not suspected during this admission. No ECG changes. Troponin negative 2. Pertussis swab negative. Orthostatic vital signs unremarkable. Hematology was brought on board who proceeded with therapeutic phlebotomy of 500 mL of blood with goal of ferritin levels between 50 and 100. Plan is for patient to have these procedures performed weekly until he reaches his goal. His hemochromatosis was allegedly diagnosed 20 years ago and [facility] and the patient was told that he was supposed to give blood frequently but he never followed up on this. His symptoms of lethargy, decreased libido, fatigue could certainly be consistent with his hemochromatosis that has yet to be treated until now. He had no focal neurological weakness is present on examination. He was ambulatory without restrictions. He was discharged home in stable condition with close outpatient follow-up with hematology and his primary care provider. ITS Impressions Chest X-Ray 10/07/16 18:04 IMPRESSION: Stable chest since 10/06/2016. No acute cardiopulmonary findings. D/ / Marcia Soto MD / Marcia Soto MD Interpreting Provider: Marcia Soto MD Abdomen/Pelvis CT 10/08/16 22:00 IMPRESSION: 1. No acute findings within the chest. 2. Stable fatty liver. Otherwise no focal liver lesion. 3. No acute findings within the abdomen or pelvis. 4. Small sliding-type hiatal hernia. D/ / Alec Robbins MD / Alec Robbins MD Interpreting Provider: Alec Robbins MD Chest CT 10/08/16 22:00 IMPRESSION: 1. No acute findings within the chest. 2. Stable fatty liver. Otherwise no focal liver lesion. 3. No acute findings within the abdomen or pelvis. 4. Small sliding-type hiatal hernia. D/ / Alec Robbins MD / Alec Robbins MD Interpreting Provider: Alec Robbins MD Echocardiogram impressions: Normal LV systolic function, LVEF 60-65%. Normal left ventricular diastolic function. Normal right ventricular structure and function. No significant valvular dysfunction. No evidence of pulmonary hypertension. - Time Spent with Patient Total time spent providing and/or coordinating discharge services: - Constitutional Vitals: Temp Pulse Resp BP Pulse Ox 97.8 F 85 16 121/73 94 10/09/16 14:30 10/09/16 14:30 10/09/16 14:30 10/09/16 14:30 10/09/16 14:30 General appearance: Present: A&O X 3, pleasant, no acute distress, answers questions appropriately - Head Head exam: Present: atraumatic, normocephalic - Eye Eye exam: Present: PERRL, conjuntiva pink, sclera anicteric Pupils: Present: PERRL - Neck Neck exam general surgery: Present: supple, trachea midline. Absent: lymphadenopathy - Respiratory Respiratory exam: Present: CTAB. Absent: accessory muscle use, rales, respiratory distress, rhonchi, wheezes - Cardiovascular Cardiovascular exam: Present: RRR, +S1, +S2. Absent: diastolic murmur, gallop, rubs, systolic murmur - GI/Abdominal GI/Abdominal exam: Present: normal bowel sounds, soft, no peritoneal signs. Absent: distended, tenderness - Extremities Exam Extremities exam: Present: warm, radial pulses palpable and symetrical. Absent : calf tenderness, cyanotic, pedal edema - Neurological Exam Neurological exam: Present: alert, CN II-XII intact, normal gait, oriented X3, no focal deficits, strengths equal and symetr throughout. Absent: pronater drift, facial droop, speech deficit - Skin Skin exam: Present: dry, intact, normal color, warm
[2016-10-09] MEDS ORDERED: 0.9 % Sodium Chloride 500 ML IVC SCH (17:00)
[2016-10-09 17:18] VITALS: BP 147/84
--- NOTE | 2016-10-09 18:56 | Oncology Inp Progress Note ---
Date of Encounter: 10/09/16 Time of Encounter: 14:00 (1) Hemochromatosis Status: Chronic Assessment and plan: As per patient. Awaiting HFE gene mutation analysis to assess for the C282Y or H63D genotype for confirmation. His ferritin is elevated, but his percentage saturation is 30% which is below the cut of 45% to establish the diagnosis. His symptoms are consistent with hemochromatosis i.e decreased libido, lethargy. . As ferritin is 703, we will start phlebotomy weekly with a ferritin goal of 50- 100. Qualifiers: Hemochromatosis type: unspecified Qualified Code(s): E83.119 - Hemochromatosis, unspecified (2) Shortness of breath Status: Acute Assessment and plan: Has resolved. CT scan of the chest negative for an acute process. Oncology: Subj Interval history: Patient is doing well and has no new complaints. - Constitutional Vitals: Vital Signs Temp Pulse Resp BP Pulse Ox 10/09/16 17:14 83 12 147/84 10/09/16 14:30 97.8 F 85 16 121/73 94 10/09/16 10:49 16 140/70 95 10/09/16 10:47 98.0 F 79 16 140/70 95 10/09/16 06:54 97.7 F 70 16 128/79 95 10/09/16 02:58 98.0 F 56 16 135/69 95 10/08/16 23:07 97.7 F 67 15 131/76 96 10/08/16 21:36 16 94 10/08/16 18:56 97.7 F 85 16 123/72 93 Intake and Output 10/09/16 10/09/16 10/09/16 07:59 15:59 23:59 Intake Total 480 / 480 Balance 480 / 480 Intake: Oral 480 / 480 Other: Meal Breakfast Percent of Meal Consumed 100% Weight 113.398 kg Patient Weight 10/09/16 23:59 Weight 113.398 kg General appearance: average body habitus, no febrile, no no acute distress - Head Head exam: Present: normal inspection, normocephalic - Eye Eye exam: Present: EOMI, normal appearance - ENT ENT exam: Present: normal exam, normal external ear exam - Neck Neck exam: Present: normal inspection. Absent: lymphadenopathy, tenderness - Respiratory Respiratory exam: Present: CTAB. Absent: respiratory distress, rhonchi, wheezes - Cardiovascular Cardiovascular exam: Present: RRR, +S1, +S2 - GI/Abdominal GI/Abdominal exam: Present: soft. Absent: organomegaly, tenderness - Extremities Exam Extremities exam: Present: normal inspection. Absent: pedal edema - Neurological Exam Neurological exam: Present: alert, oriented X3 Oncology: Obj Data - Labs CBC & Chem 7: 10/08/16 01:00 10/08/16 01:00 Labs: Laboratory Results - last 24 hr 10/08/16 19:56 Hepatitis A IgM Ab Nonreactive Hep Bs Antigen Nonreactive Hep B Core IgM Ab Nonreactive Hepatitis C Ab Screen Nonreactive - Impressions Impressions Abdomen/Pelvis CT 10/08/16 22:00 IMPRESSION: 1. No acute findings within the chest. 2. Stable fatty liver. Otherwise no focal liver lesion. 3. No acute findings within the abdomen or pelvis. 4. Small sliding-type hiatal hernia. D/ / Alec Robbins MD / Alec Robbins MD Interpreting Provider: Alec Robbins MD Chest CT 10/08/16 22:00 IMPRESSION: 1. No acute findings within the chest. 2. Stable fatty liver. Otherwise no focal liver lesion. 3. No acute findings within the abdomen or pelvis. 4. Small sliding-type hiatal hernia. D/ / Alec Robbnis MD / Alec Robbins MD Interpreting Provider: Alec Robbins MD - ABG Interpretation ABG results: PT/INR, D-dimer PT 11.6 Seconds (9.4-12.1) 10/07/16 19:06 D-Dimer 235 ng/mLFEU (0-500) 10/07/16 19:06 Consult Discharge Plan - Plan Instructions: Dextromethorphan (By mouth) Additional Instructions: Follow-up with primary care provider as scheduled, follow-up with hematology next week. Referrals: [facility] [Provider Group] (The office will call you on Wednesday. If they do not call you, please call the office Wednesday.) Simon Fountain MD [Primary Care Provider] - 10/16/16 10:00 am Fiaza Nicholson MD [Partnered Physician] - (The office will call you on Wednesday. If they do not call you, please call the office Wednesday.) Prescriptions: GuaiFENesin/Codeine [ROBITUSSIN w/CODEINE] 5 ml PO Q6HR PRN #150 ml PRN Reason: Cough
[2016-10-10] MEDS ORDERED: predniSONE 20 MG TABLET PO SCH (09:00)
[2016-10-13 16:59] LABS: HIV-1 Ab Supplemental NEGATIVE (Negative); HIV-2 Ab Supplemental NEGATIVE (Negative)
[2016-10-14 23:10] LABS: C282Y Hemochromatosis Mutation NEGATIVE; H63D Hemochromatosis Mutation NEGATIVE; HFE Specimen Type WHOLE BLOOD; S65C Hemochromatosis Mutation NEGATIVE
== END 2016-10-09 18:13 | disposition home or self-care (01) ==
LOC: 3BNU 17:28 → EMEROO 17:28 → 3BNU 21:34
PROVIDERS: ADMIT Nurse Practitioner Family; ATTEND Nurse Practitioner Family